=== PATIENT | female | born 1965 | race Caucasian/White ===

== ENCOUNTER 2021-08-15 14:33 | Outpatient (REF) | payer OTHER, SELFPAY ==
[2021-08-15 17:34] LABS: Alanine Aminotransferase 71 U/L (0-31); Albumin Level 4.3 g/dL (3.5-5.0); Alkaline Phosphatase 92 U/L (39-117); Anion Gap 10 (12-20); Aspartate Amino Transferase 42 U/L (5-31); Bilirubin Total < 0.2 mg/dL (0.0-1.0); Blood Urea Nitrogen 12 mg/dL (9-16); C Reactive Protein 0.15 mg/dL (< or = 0.50); Calcium 9.7 mg/dL (8.4-10.2); Carbon Dioxide 29 mmol/L (22-29); Chloride 106 mmol/L (96-108); Estimated Glomerular Filt Rate 41; Glucose Random 86 mg/dL (60-115); Sodium 141 mmol/L (135-145); Total Protein 6.6 g/dL (6.5-8.0)
[2021-08-15 17:48] LABS: Thyroid Stimulating Hormone 1.52 uIU/mL (0.32-4.0)
[2021-08-15 18:04] LABS: Erythrocyte Sedimentation Rate 5 MM/HR (0-20)
[2021-08-15 18:11] LABS: Estimated Average Glucose 108 mg/dL; Hemoglobin A1c % 5.4 %
== END 2021-08-15 14:34 | disposition home or self-care (01) ==
LOC: HO.MANLDS 14:33
PROVIDERS: PCP Physician Assistant; Visit Provider Physician Assistant
DX: R73.01 Impaired fasting glucose (principal); H53.2 Diplopia
CPT/HCPCS: 36415; 80053; 83036; 84443; 85652; 86140

== ENCOUNTER 2021-09-04 09:43 | Outpatient (REF) | payer OTHER, SELFPAY ==
[2021-09-04 11:52] LABS: Alanine Aminotransferase 22 U/L (0-31); Albumin Level 4.3 g/dL (3.5-5.0); Alkaline Phosphatase 73 U/L (39-117); Anion Gap 10 (12-20); Aspartate Amino Transferase 16 U/L (5-31); Bilirubin Total 0.6 mg/dL (0.0-1.0); Blood Urea Nitrogen 15 mg/dL (9-16); Carbon Dioxide 30 mmol/L (22-29); Chloride 106 mmol/L (96-108); Estimated Glomerular Filt Rate > 60; Glucose Random 97 mg/dL (60-115); Potassium 3.7 mmol/L (3.3-5.1); Sodium 142 mmol/L (135-145); Total Protein 6.8 g/dL (6.5-8.0)
== END 2021-09-04 09:44 | disposition home or self-care (01) ==
LOC: HO.MANLDS 09:43
PROVIDERS: PCP Physician Assistant; Visit Provider Physician Assistant
DX: R94.5 Abnormal results of liver function studies (principal)
CPT/HCPCS: 36415; 80053

== ENCOUNTER 2022-06-19 09:07 | Outpatient (REF) | payer OTHER, SELFPAY ==
[2022-06-19 11:18] LABS: MANUAL DIFF FLAG NO
[2022-06-19 11:20] LABS: Basophils Percent Auto 0.8 % (0-2); Eosinophils Absolute Auto 0.2 X10*3/uL (0.0-0.4); Eosinophils Percent Auto 3.6 % (0-4); Hematocrit 43.2 % (37.0-47.0); Hemoglobin 13.9 g/dl (12.0-16.0); Imm Gran Abs Auto 0.02 X10*3/uL (0.00-0.03); Imm Gran Pct Auto 0.4 % (0.0-0.4); Lymphocytes Absolute Auto 1.5 X10*3/uL (1.2-4.9); Lymphocytes Percent Auto 29.2 % (20-40); Mean Corpuscular HGB Conc 32.2 g/dl (31.0-35.0); Mean Corpuscular Hemoglobin 30.2 pg (27.0-33.0); Mean Corpuscular Volume 93.7 fL (80.0-98.0); Mean Platelet Volume 10.1 fL (9.4-12.3); Monocytes Absolute Auto 0.5 X10*3/uL (0.1-1.2); Monocytes Percent Auto 8.8 % (2-11); Neutrophils Percent Auto 57.2 % (45-73); Platelet Count 242 X10*3/uL (160-400); Red Blood Count 4.61 X10*6/uL (4.20-5.50); Red Cell Distribution Width 13.8 % (11.0-16.0); White Blood Count 5.2 X10*3/uL (4.8-10.8)
[2022-06-19 11:26] LABS: Estimated Average Glucose 108 mg/dL; Hemoglobin A1c % 5.4 %
[2022-06-19 11:55] LABS: Alanine Aminotransferase 27 U/L (0-31); Albumin Level 4.2 g/dL (3.5-5.0); Alkaline Phosphatase 77 U/L (39-117); Anion Gap 11 (12-20); Aspartate Amino Transferase 20 U/L (5-31); Bilirubin Total 0.6 mg/dL (0.0-1.0); Blood Urea Nitrogen 13 mg/dL (9-16); Calcium 9.4 mg/dL (8.4-10.2); Carbon Dioxide 29 mmol/L (22-29); Chloride 106 mmol/L (96-108); Cholesterol 262 mg/dL; Estimated Glomerular Filt Rate > 60; Free T4 (Free Thyroxine) 0.74 ng/dL (0.71-1.85); Glucose Random 91 mg/dL (60-115); HDL Cholesterol 64 mg/dL; LDL Cholesterol Calculated 167 mg/dl; Potassium 4.5 mmol/L (3.3-5.1); Sodium 141 mmol/L (135-145); Thyroid Stimulating Hormone 9.18 uIU/mL (0.32-4.0); Total Protein 6.3 g/dL (6.5-8.0); Triglycerides 155 mg/dL
== END 2022-06-19 09:08 | disposition home or self-care (01) ==
LOC: HO.MANLDS 09:07
PROVIDERS: Visit Provider Physician Assistant
DX: Z00.00 Encounter for general adult medical examination without abnormal findings (principal); R73.01 Impaired fasting glucose
CPT/HCPCS: 36415; 80053; 80061; 83036; 84439; 84443; 85025

== ENCOUNTER 2022-10-01 09:33 | Outpatient (REF) | payer OTHER, SELFPAY ==
[2022-10-01 12:26] LABS: Free T4 (Free Thyroxine) 1.07 ng/dL (0.71-1.85); Thyroid Stimulating Hormone 0.99 uIU/mL (0.32-4.0)
== END 2022-10-01 09:34 | disposition home or self-care (01) ==
LOC: HO.MANLDS 09:33
PROVIDERS: Visit Provider Physician Assistant
DX: E03.9 Hypothyroidism, unspecified (principal)
CPT/HCPCS: 36415; 84439; 84443

== ENCOUNTER → 2023-01-16 14:51 | Outpatient (REF) | payer OTHER, SELFPAY ==
--- NOTE | 2023-01-16 14:54 | CA_ITS ---
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 The calculated ejection fraction is 69% by biplane method. - There is moderate septal asymmetric hypertrophy. - There is mild aortic valve regurgitation. - There is mild dilatation of the ascending aorta measuring 3.90 cm. Findings Left Ventricle Normal left ventricular cavity size. The left ventricular systolic function is normal. The calculated ejection fraction is 69% by biplane method. There is no evidence of regional wall motion abnormalities. Diastolic function is normal for age. There is moderate septal asymmetric hypertrophy. LV peak GLS -20.2%. Right Ventricle Normal right ventricular cavity size and systolic function. Atria Both atria are normal in size. Aortic Valve The aortic valve was not well visualized. There is no aortic valve stenosis. There is mild aortic valve regurgitation. Mitral Valve The mitral valve appears normal. There is no mitral valve regurgitation. There is no mitral valve stenosis. Pulmonic Valve The pulmonic valve is likely normal. Tricuspid Valve There is trace tricuspid valve regurgitation. There is no evidence of pulmonary hypertension. Great Vessels There is mild dilatation of the ascending aorta measuring 3.90 cm. Venous The inferior vena cava is normal in size and collapses greater than 50% with inspiration. Pericardium/Pleural There is no evidence of pericardial effusion. Prior Study Comparison No prior study available for comparison. Measurements 2D Linear Measurements IVSd: 1.53 0.6-0.9/0.6-1.0 cm LVIDd: 3.30 3.9-5.3/4.2-5.9 cm LVIDd Index: 1.78 2.4-3.2/2.2-3.1 cm/m2 LVIDs: 2.23 2.0-3.6 cm LVPWd: 0.75 0.7-1.1 cm LA Diam: 3.30 2.7-3.8/3.0-4.0 cm LAIDs Index: 1.78 1.5-2.3 cm/m2 LV Mass: 143.71 67-162/88-224 g LV Mass Index: 77.68 43-95/49-115 g/m2 LVOT Diam: 2.00 3.0+(-)1.3 cm 2D Systolic Function EF 4C: 70.30 >55% EF 2C: 65.60 >55% EF BiP: 68.50 >55% Mitral Valve MV Pk E: 0.63 MV PK A: 0.81 MV Decel Time: 218.00 E/A: 0.80 E'Lateral: 11.60 E'Medial: 6.20 E/E' Med: 10.20 E/E' Lat: 5.40 PHT: 64.00 MVA PHT: 3.44 Decel [place]: 2.89 Aortic Valve AoV Pk Jeff: 1.72 AoV Mn Jeff: 1.07 AoV VTI: 0.34 AoV Pk Grad: 12.00 Aov Mn Grad: 6.00 KELI Cont.VTI: 2.19 AI Pk Jeff: 3.90 AI [place]: 1.08 LVOT LVOT Pk Jeff: 1.20 LVOT Mn Jeff: 0.80 LVOT VTI: 0.24 LVOT Pk Grad: 6.00 LVOT Mn Grad: 3.00 LVOT Diam: 2.00 LVOT Area: 3.14 Diastolic Function MV Pk E: 0.63 MV Pk A: 0.81 E/A: 0.80 E'Medial: 6.20 E/E' Med: 10.20 E' Laterial: 11.60 E/E' Lat: 5.40 Right Ventricle TAPSE (mm): 22.00 TVS' Jeff: 10.70 Tricuspid Valve TR Pk Jeff: 1.15 TR Pk Grad: 5.00 RA Press: 3.00 RVSP: 8.00 Great Vessels Aorta Sinus of Valsalva: 3.50 2.0-3.5 cm Ao Asc: 3.90 2.1-3.4 cm Ao Arch: 3.80 Pulmonary Valve PV Pk Jeff: 0.96 Peak PV Grad: 4.00 Updated in Other Vendor System with Status of Final Yeyo Lakhani MD electronically signed on 01/16/2023 4:42:18 PM with status of Final
== END ==
LOC: HO.CARD 14:51
PROVIDERS: PCP Internal Medicine; Visit Provider Physician Assistant
DX: R55 Syncope and collapse (principal)
CPT/HCPCS: 93306; 93356

== ENCOUNTER → 2023-01-16 14:54 | Outpatient (BNV) | payer OTHER, SELFPAY | PROVIDERS: PCP Internal Medicine; Visit Provider Internal Medicine | DX: I35.1 Nonrheumatic aortic (valve) insufficiency (principal) | CPT/HCPCS: 93306 ==

== ENCOUNTER 2023-05-05 10:23 | Outpatient (REF) | payer OTHER, SELFPAY ==
[2023-05-05 14:02] LABS: Free T4 (Free Thyroxine) 1.18 ng/dL (0.71-1.85); Thyroid Stimulating Hormone 0.02 uIU/mL (0.32-4.0)
[2023-05-07 03:28] LABS: Thyroid Peroxidase Antibodies 3 IU/mL (<9)
[2023-05-08 17:23] LABS: Thyroid Stimulating Immunoglob <89 % baseline (<140)
== END 2023-05-05 10:24 | disposition home or self-care (01) ==
LOC: HO.MANLDS 10:23
PROVIDERS: Visit Provider Physician Assistant
DX: E03.8 Other specified hypothyroidism (principal)
CPT/HCPCS: 36415; 84439; 84443; 84445; 84481; 86376

== ENCOUNTER 2023-06-02 08:45 | Outpatient (REF) | payer OTHER, SELFPAY ==
[2023-06-02 14:25] LABS: Free T4 (Free Thyroxine) 1.01 ng/dL (0.71-1.85); Thyroid Stimulating Hormone 0.03 uIU/mL (0.32-4.0)
[2023-06-03 10:23] LABS: Triiodothyronine T3 Free 3.7 pg/mL (2.3-4.2)
[2023-06-03 12:23] LABS: Thyroid Peroxidase Antibodies 3 IU/mL (<9)
== END 2023-06-02 08:46 | disposition home or self-care (01) ==
LOC: HO.MANLDS 08:45
PROVIDERS: Visit Provider Physician Assistant
DX: E03.8 Other specified hypothyroidism (principal)
CPT/HCPCS: 36415; 84439; 84443; 84481; 86376

== ENCOUNTER 2023-07-01 10:57 | Outpatient (REF) | payer OTHER, SELFPAY ==
[2023-07-01 14:03] LABS: Free T4 (Free Thyroxine) 0.94 ng/dL (0.71-1.85); Thyroid Stimulating Hormone 0.04 uIU/mL (0.32-4.0)
[2023-07-02 07:08] LABS: Triiodothyronine T3 Free 5.4 pg/mL (2.3-4.2)
[2023-07-02 09:38] LABS: Thyroid Peroxidase Antibodies 3 IU/mL (<9)
== END 2023-07-01 10:58 | disposition home or self-care (01) ==
LOC: HO.MANLDS 10:57
PROVIDERS: Visit Provider Physician Assistant
DX: E03.8 Other specified hypothyroidism (principal)
CPT/HCPCS: 36415; 84439; 84443; 84481; 86376

== ENCOUNTER 2023-10-31 08:36 | Outpatient (REF) | payer OTHER, SELFPAY ==
[2023-10-31 13:24] LABS: MANUAL DIFF FLAG NO
[2023-10-31 13:43] LABS: Basophils Percent Auto 0.7 % (0-2); Eosinophils Absolute Auto 0.1 X10*3/uL (0.0-0.4); Eosinophils Percent Auto 2.8 % (0-4); Hematocrit 39.7 % (37.0-47.0); Imm Gran Abs Auto 0.02 X10*3/uL (0.00-0.03); Imm Gran Pct Auto 0.4 % (0.0-0.4); Lymphocytes Absolute Auto 1.5 X10*3/uL (1.2-4.9); Lymphocytes Percent Auto 32.2 % (20-40); Mean Corpuscular HGB Conc 32.7 g/dl (31.0-35.0); Mean Corpuscular Hemoglobin 30.5 pg (27.0-33.0); Mean Corpuscular Volume 93.2 fL (80.0-98.0); Mean Platelet Volume 10.6 fL (9.4-12.3); Monocytes Absolute Auto 0.4 X10*3/uL (0.1-1.2); Monocytes Percent Auto 8.5 % (2-11); Neutrophils Absolute Auto 2.6 x10*3/uL (2.0-8.3); Neutrophils Percent Auto 55.4 % (45-73); Platelet Count 241 X10*3/uL (160-400); Red Blood Count 4.26 X10*6/uL (4.20-5.50); Red Cell Distribution Width 15.2 % (11.0-16.0); White Blood Count 4.6 X10*3/uL (4.8-10.8)
[2023-10-31 13:58] LABS: Estimated Average Glucose 111 mg/dL; Hemoglobin A1c % 5.5 % (<6.0)
[2023-10-31 14:03] LABS: Alanine Aminotransferase 23 U/L (0-31); Albumin Level 4.1 g/dL (3.5-5.0); Alkaline Phosphatase 87 U/L (39-117); Anion Gap 12 (12-20); Aspartate Amino Transferase 18 U/L (5-31); Bilirubin Total 0.6 mg/dL (0.0-1.0); Blood Urea Nitrogen 14 mg/dL (9-16); Calcium 9.3 mg/dL (8.4-10.2); Carbon Dioxide 26 mmol/L (22-29); Chloride 105 mmol/L (96-108); Cholesterol 210 mg/dL (<200); Estimated Glomerular Filt Rate > 60; Glucose Random 83 mg/dL (60-115); HDL Cholesterol 81 mg/dL (>40); LDL Cholesterol Calculated 114 mg/dL (<100); Potassium 4.3 mmol/L (3.3-5.1); Sodium 139 mmol/L (135-145); Total Protein 6.4 g/dL (6.5-8.0); Triglycerides 79 mg/dL (<150)
[2023-10-31 14:21] LABS: Free T4 (Free Thyroxine) 0.71 ng/dL (0.71-1.85); Thyroid Stimulating Hormone 7.77 uIU/mL (0.32-4.0); Vitamin D 25-OH Total 72.4 ng/mL (>30)
== END 2023-10-31 08:37 | disposition home or self-care (01) ==
LOC: HO.MANLDS 08:36
PROVIDERS: Visit Provider Physician Assistant
DX: Z00.00 Encounter for general adult medical examination without abnormal findings (principal); E03.8 Other specified hypothyroidism
CPT/HCPCS: 36415; 80053; 80061; 82306; 83036; 84439; 84443; 85025

== ENCOUNTER 2024-10-01 12:58 | Outpatient (REF) | payer OTHER, SELFPAY ==
[2024-10-01 13:26] LABS: Appearance Urine Clear; Color Urine Yellow; Glucose Urine UA Negative (Negative); Leukocyte Esterase Urine Large (3+) (Negative); Nitrite Urine Negative (Negative); PH 7.5 (5.0-9.0); Specific Gravity - Urine <= 1.005 (1.005-1.025); UMIC TRIGGER UACC YES; Urine Blood Moderate (2+) (Negative); Urine Ketones Negative (Negative); Urine Protein Negative (Neg-Trace)
[2024-10-01 13:40] LABS: Bacteria Urine Trace (None Seen); Hyaline Casts Urine 0-2 /LPF (0-2); RBC Urine 0-2 /HPF (0-2); Squamous Epithelial Cell Urine 0-2 /HPF (0-2); UACC Culture Trigger YES
--- OUTSIDE RECORDS SUMMARY | 2024-10-01 14:49 | XMS_ITS ---
Author Organization [employer] [facility] Address [address] [place] [address] Care Team Providers Care Shoe Laster Name Role Phone STERLING SUE Primary Care Provider MEL Walsh Unavailable [phone] Allergies No Known Allergies Results Component Value Reference Range Notes [id number] Reviewed date:09/27/2024 04:47:36 PM Interpretation: Performing Lab:[facility] [place], [address], [place], Phone - [phone], Director - [place] Notes/Report: RPR Non Reactive Non Reactive HBsAg Screen-[id number] Reviewed date:09/27/2024 04:47:29 PM Interpretation: Performing Lab:[facility] [place], [address], [address], [place], Phone - [phone], Director - [place] Notes/Report: HBsAg Screen Negative Negative HIV Ab/p24 Ag with Reflex-[id number] Reviewed date:09/27/2024 04:47:23 PM Interpretation: Performing Lab:[facility] [place], [address], [address], [place], Phone - [phone], Director - [place] Notes/Report: HIV Ab/p24 Ag Screen Non Reactive Non Reactive HIV-1/HIV-2 antibodies and HIV-1 p24 antigen were NOT detected. There is no laboratory evidence of HIV infection. HIV Negative HCV Antibody-[id number] Reviewed date:09/27/2024 04:47:16 PM Interpretation: Performing Lab:[facility] [place], [address], [address], [place], Phone - [phone], Director - [place] Notes/Report: Hep C Virus Ab Non Reactive Non Reactive HCV antibody alone does not differentiate between previously resolved infection and active infection. Equivocal and Reactive HCV antibody results should be followed up with an HCV RNA test to support the diagnosis of active HCV infection. PDF Report Reviewed date:09/27/2024 04:48:51 PM Interpretation: Performing Lab:[facility] [place], [address], [address], [place], Phone - [phone], [facility] Notes/Report: Clinical Information:SRC: CERVIX Chlamydia/GC Amplification Reviewed date:09/28/2024 11:42:00 AM Interpretation: Performing Lab:[facility] [place], [address], [address], [place], Phone - [phone], [facility] Notes/Report: Clinical Information:SRC: CERVIX Chlamydia trachomatis, TUAN Negative Negative Neisseria gonorrhoeae, TUAN Negative Negative REASON FOR VISIT STI TESTING Medications Medication SIG (Take, Route, Frequency, Duration) Notes Start Date End Date Status Liothyronine Sodium 5 MCG take 1 tablet by mouth once daily Oral for 90 Active Lisinopril 2.5 MG take 1 tablet by mouth once daily Oral for 90 days Taking 0.5 tab daily Active Levothyroxine Sodium 88 MCG take 1/2 tablet by mouth once daily Orally Once a day Active Clobetasol Propionate 0.05 % 1 application to affected area Externally Twice a day for 56 days 05/24/2024 Active Estradiol 7.5 MCG/24HR 1 ring Vaginal every 3 months for 90 days 05/24/2024 Not-Taking Social History Tobacco Use: Social History Observation Description Date Details (start date - stop date) Never Smoker NA - NA Sexual History Question Answer Notes Had sex in the past 12 months (vaginal, oral, or anal)? Yes with Men only Prevention strategies discussed: Other AUDIT-C (Standard) Question Answer Notes Did you have a drink contain ing alcohol in the past year? Yes How often did you have six o r more drinks on one occasion in the past year? Never (0 point) How many drinks did you have on a typical day when you were drinking in the past year? 1 or 2 drinks (0 point) How often did you have a dri nk containing alcohol in the past year? 2 to 3 times a week (3 points) Points 3 Interpretation Positive Tobacco Control (Standard) Question Answer Notes Tobacco use: Nonsmoker Vital Signs Temperature 97.5 degrees Fahrenheit 09/25/19 25 Blood pressure systolic 124 mm Hg 09/25/19 25 Blood pressure diastolic 88 mm Hg 025 Height 65.25 in 09/24/2024 Weight 185 lbs 09/24/2024 BMI 30.55 kg/m2 09/24/2024 Encounters Encounter Location Date Provider Diagnosis [facility] [address] [place] [address] 09/24/2024 MEL GAUTHIER High risk heterosexu al behavior Z72.51 Assessments Encounter Date Diagnosis (ICD Code) Assessment Notes Treatment Notes Treatment Clinical Notes Section Notes 09/24/2024 High risk heterosexual behavior (ICD-10 - Z72.51) Plan Of Treatment Pending Test Test Name Order Date Chlamydia/GC Amplification-[id number] 2024 Next Appt Details Follow Up: prn, Reason: Provider Name:MEL Fall, 05/13/2025 09:00:00 AM[address], [place], [address], Procedure Notes * Category Sub-Category Detail Notes Wet [place] Clue cells None seen Hyphae No hyphae or buds Trichomonas None seen Progress Notes * JOHN TONGOB:1965 (59 yo F)Acc No.[id number]:09/24/2024 PROGRESS NOTES Patient:?NICHELLE TONG Provider:?MEL GAUTHIER MD :1965???Age:59 Y???Sex:Female D ate:09/24/2024 Address:[address] [place] [address], [facility] Pcp:SUE KATZ Subjective: * Chief Complaints: * ???STI TESTING * HPI: ???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 No known or perceived risk factors ?Past history of sexually transmitted diseases (STDs):?no sexually transmitted disease (STD) ?Risk factors:?just out of a relationship ?Associated signs and symptoms:?no fever/chills/nausea/vomiting/abdominal or pelvic pain/vaginal or vulvar lesion or discharge ? Nichelle reports she recently ended a relationship, last intercourse was mid-June. She is not symptomatic, and has no known contact with an STI, but would like to know that she is clear of any infections. Discussed the 6 mo HIV window. * ROS:?General/Constitutional:?Denies?Chills.?Denies?Fever.?Gastrointestinal:?Denies?Abdominal pain.?Denies?Change in bowel habits.?Denies?Nausea.?Denies?Vomiting.?Hematology:?Denies?Swollen glands.?Women Only:?Patient denies?postcoital bleeding.?Comments?Reports no new sexual partners.?Denies?Painful intercourse.?Denies?Vaginal discharge/itching.?Genitourinary:?Denies?Painful urination.? * Medical History:? * Director Chemistry History:?/ Para?1/.?Sexual activity?currently sexually active.?Last Pap Smear:?04/22/22 NIL, NEG HPV, 10/15/18 - ASCUS, neg.?Mammogram:?sched October 22, 01/01/23 < 50% density, 11/02/21 < 50% density, 09/04/20 < 50% density, 07/19/19, < 50% density.?LMP and menses?Kusum 2016.? Control:?bilateral tubal ligation.?Colonoscopy?2022 or 2023, yes 2019 No polyps found, f/u in 3-5 yrs due to family history of polyps..?Gardasil:?NO.?*Hep B Vac?PT's not sure.? * OB History:?Total pregnancies?1.?Total living children?1.?NVD?1.? # 1:?normal spontaneous vaginal delivery (), 09/17/94 daughter Annette , no complications.? * Surgical History:?Tonsillect rodriguez 1971Bilateral Tubal Ligation 1997Cholecysectomy 1997Wisdom Teeth 1984Endometrial Biopsy 2013Colonoscopy (Heather) 05/2023 * Hospitalization/Major Diagno stic Procedure:?1 Vaginal Delivery See Surgical Hx Double Vision 2X * Family History:?Mother: dece ased, Pancreatic Cancer. Type 2 Diabetes, Osteoporosis.?Father: , Heart Issue, Kidney Stones.?2 brother(s) , 2 sister(s) . .? Sister - Jenifer - 1955 - got Covid Sister - Lisa - 1953 - well Brother - Mohsen - 1957 - estranged Brother - Romulo - 1966 - well. * Social History:?Tobacco Use:?Tobacco Control (Standard)?Tobacco use:?Nonsmoker ???Sexual History:?Sexual History?Had sex in the past 12 months (vaginal, oral, or anal)??Yes ?with?Men only ?Prevention strategies discussed:?Other ?Details of Sexual History?Are you sexually active??Yes ???Drugs/Alcohol:?Drugs?Have you used drugs other than those for medical reasons in the past 12 months??Yes ?Marijuana??Yes edible - used rarely for sleep ???Miscellaneous:?Children: yes, 1. ?Domestic violence: no. ?Exercise: yes, walking, biking, eliptical, jogging, weights. ?Home smoke detector use: yes, smoke detectors, carbon monoxide detector. ?Housing: owns a home. ?Living with: alone. ?Marital status: , in relationship with male partner - Edgar. ?Natural support system: yes. 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 ?Pets: none. ?Sexual abuse: no. ?Sexually active: yes. ?Verbal abuse: yes, with late . ???Drug/Alcohol:?AUDIT-C (Standard)?Did you have a drink containing alcohol in the past year??Yes ?How often did you have six or more drinks on one occasion in the past year??Never (0 point) ?How many drinks did you have on a typical day when you were drinking in the past year??1 or 2 drinks (0 point) ?How often did you have a drink containing alcohol in the past year??2 to 3 times a week (3 points) ?Points?3 ?Interpretation?Positive * Medications:?TakingLiothyron ine Sodium 5 MCG Tablet take 1 tablet by mouth once daily Oral Lisinopril 2.5 MG Tablet take 1 tablet by mouth once daily Oral , Notes to Pharmacist: Taking 0.5 tab dailyLevothyroxine Sodium 88 MCG Tablet take 1/2 tablet by mouth once daily Orally Once a day Clobetasol Propionate 0.05 % Cream 1 application to affected area Externally Twice a day Taking Liothyronine Sodium 5 MCG Tablet take 1 tablet by mouth once daily Oral Taking Lisinopril 2.5 MG Tablet take 1 tablet by mouth once daily Oral , Notes to Pharmacist: Taking 0.5 tab dailyTaking Levothyroxine Sodium 88 MCG Tablet take 1/2 tablet by mouth once daily Orally Once a day Taking Clobetasol Propionate 0.05 % Cream 1 application to affected area Externally Twice a day Not-TakingEstradiol 7.5 MCG/24HR Ring 1 ring Vaginal every 3 months Medication List reviewed and reconciled with the patientNot-Taking Estradiol 7.5 MCG/24HR Ring 1 ring Vaginal every 3 months Medication List reviewed and reconciled with the patient * Allergies:?N.K.D.A.no[Allerg ies Verified] Objective: * Vitals:?Ht: 65.25 in, Wt:185 lbs, BMI:30.55Index, BP:124/88mm Hg, Temp:97.5F. * Examination: ???General Examination: ?GENERAL APPEARANCE:? pleasant, well nourished, in no acute distress, rough patcher present in room.?LYMPH NODES:? no inguinal adenopathy.?Genitourinary - Female: ?ABDOMEN:? soft, non-tender, no mass.?EXTERNAL GENITALS:? normal.?URETHRAL MEATUS:? normal.?VAGINA:? healthy pink mucosa without any lesions.?ANUS/PERINEUM:? normal.?CERVIX:? downward, normal appearing, GC/CT swab obtained, no cervical movement tenderness.?UTERUS:? normal size, mobile, non tender.?OVARIES:? no masses felt in adnexa, nontender.? Assessment: * Assessment: 1.?High risk heterosexual be havior - Z72.51 (Primary)??? Plan: * Treatment: ? Value Reference Range ?RPR Non Reactive Non Reactive - * This lab was reviewed by EZE GAUTHIER on 09/27/2024 at 16:47 PM EDT ?LAB: HBsAg Screen-[id number]* ? Value Reference Range ?HBsAg Screen Negative Negative - * This lab was reviewed by EZE GAUTHIER on 09/27/2024 at 16:47 PM EDT ?LAB: HIV Ab/p24 Ag with Reflex-[id number]* ? Value Reference Range ?HIV Ab/p24 Ag Screen Non Reactive No n Reactive - * This lab was reviewed by EZE GAUTHIER on 09/27/2024 at 16:47 PM EDT ?LAB: Chlamydia/GC Amplification-[id number]* Cervical (Done in Office) ?LAB: HCV Antibody-[id number] * Procedures:?[place]et [place]:?Clue cells?None seen.?Hyphae?No hyphae or buds.?Trichomonas?None seen.? * Procedure Codes:? * Preventive Medicine:?~~~~~~~~ SAFER SEX ~~~~~~~~ Sexually transmitted infections (STIs) are spread by sexual contact involving the genitals, mouth, or rectum, and can also be spread from a woman to her fetus before or during delivery. STIs, which affect both men and women, are a worldwide public health concern. Although most STIs can be cured, some cannot, including HIV (which causes AIDS), genital herpes, and human papillomavirus (HPV), which can cause genital warts. STIs can be spread by people who don't know they are infected. Always use protection every time you have sex, including oral sex, until you are sure you and your partner are not infected with an STI. If you are in a relationship, delay having sex until you are physically and emotionally prepared, have agreed to only have sex with each other, and have both been tested for STIs. Abstinence as prevention ~~~~~~~~~~~~~~~~ Completely avoiding sexual contact (abstinence), including intercourse and oral sex, is the only certain way to prevent an infection. Discuss safer sex with your partner ~~~~~~~~~~~~~~~~~~~~~~~ Discuss STIs before you have sex with someone. Even though a sex partner doesn't have symptoms of an STI, he or she may still be infected. Questions to ask someone before having sex include: How many people have you had sex with? Have you had sex without a condom? Have you ever had unprotected oral sex? Have you had more than one sex partner at a time? Do you inject illegal drugs or have you had sex with someone who injects drugs? Have you ever had unprotected sex with a prostitute? Have you had a test for HIV? What were the results? Have you ever had an STI, including hepatitis B or hepatitis C? Was it treated and cured? Safer sex practices ~~~~~~~~~~~~~ Some STIs, such as HIV, can take up to 6 months before they can be detected in the blood. Genital herpes and the human papillomavirus (HPV) can be spread when symptoms are not present. Even if you and your partner have been tested, use condoms for all sex until you and your partner haven't had sex with another person for 6 months. Then get tested again. Watch for symptoms of STIs, such as unusual discharge, sores, redness, or growths in your and your partner's genital area, or pain while urinating. Don't have more than one sex partner at a time. The safest sex is with one partner who has sex only with you. Every time you add a new sex partner, you are being exposed to all of the diseases that all of their partners may have. Your risk for an STI increases if you have several sex partners at the same time. Use a condom every time you have sex. A condom is the best way to protect yourself from STIs. Latex and polyurethane condoms do not let STI viruses pass through, so they offer good protection from STIs. Condoms made from sheep intestines do not protect against STIs. Use a water-based lubricant such as K-Y Jelly or Astroglide to help prevent tearing of the skin if there is a lack of lubrication during sexual intercourse. Small tears in the vagina during vaginal sex or in the rectum during anal sex allow STI bacteria or viruses to get into your blood. Avoid douching if you are a woman, because it can change the normal balance of organisms in the vagina and increases the risk of getting an STI. A mouth barrier, such as a dental dam, can be used to reduce the spread of infection through oral sexual activity. You can discuss this method with your dentist or doctor. Tell your sex partner or partners if you have symptoms of an infection or if you're being treated for an STI, such as HIV or herpes. If you or your partner has herpes, avoid sexual contact when a blister is present. If you and your partner have sex, use a latex condom. * Follow Up:?prn * Images: Billing Information: * Visit Code:? 45437 Office Visit, Est Pt., Level 3. * Procedure Codes:? 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 No known or perceived risk factors Nichelle reports she recently ended a relationship, last intercourse was mid-June. She is not symptomatic, and has no known contact with an STI, but would like to know that she is clear of any infections. Discussed the 6 mo HIV window. Past history of sexually tra nsmitted diseases (STDs):: no sexually transmitted disease (STD) Risk factors:: just out of a relati onship Associated signs and symptom s:: no fever/chills/nausea/vomiting/abdominal or pelvic pain/vaginal or vulvar lesion or discharge Examination Category Sub-Category Detail Notes Category Not es Genitourinary - Female ABDOMEN: soft, non-tender, no mass EXTERNAL GENITALS: normal VAGINA: healthy pink mucosa without any lesions CERVIX: downward, normal carolynn earing, GC/CT swab obtained, no cervical movement tenderness UTERUS: normal size, mobile, non tender OVARIES: no masses felt in ad nexa, nontender URETHRAL MEATUS: normal ANUS/PERINEUM: normal General Examination GENERAL APPEARANCE: pleasant , well nourished, in no acute distress, rough patcher present in room LYMPH NODES: no inguinal adenopat hy
--- OUTSIDE RECORDS SUMMARY | 2024-10-01 14:49 | XMS_ITS ---
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 Role Phone STERLING SUE Primary Care Provider MEL Walsh Unavailable [phone] Allergies No Known Allergies REASON FOR VISIT 2 MONTH FOLLOW UP Medications Medication SIG (Take, Route, Frequency, Duration) Notes Start Date End Date Status Clobetasol Propionate 0.05 % 1 application to affected area Externally Twice a day for 56 days 05/24/2024 Active Estradiol 7.5 MCG/24HR 1 ring Vaginal every 3 months for 90 days 05/24/2024 Not-Taking Levothyroxine Sodium 88 MCG take 1/2 tablet by mouth once daily Orally Once a day Active Lisinopril 2.5 MG take 1 tablet by mouth once daily Oral for 90 days Taking 0.5 tab daily Active Liothyronine Sodium 5 MCG take 1 tablet by mouth once daily Oral for 90 Active Social History Tobacco Use: Social History Observation Description Date Details (start date - stop date) Never Smoker NA - NA Tobacco Use/Smoking Question Answer Notes Are you a nonsmoker Sexual History Question Answer Notes Had sex [...] week (3 points) Points 3 Interpretation Positive Vital Signs Temperature 97.8 degrees Fahrenheit 07/22/19 25 Blood pressure systolic 118 mm Hg 07/22/19 25 Blood pressure diastolic 76 mm Hg 025 Height 65.25 in 07/22/2024 Weight 185 lbs 07/22/2024 BMI 30.55 kg/m2 07/22/2024 Encounters Encounter Location Date Provider Diagnosis [address] [place] [address] 07/22/2024 MEL GAUTHIER Lichen sclerosus et atrophicus L90.0 Assessments Encounter Date Diagnosis (ICD Code) Assessment Notes Treatment Notes Treatment Clinical Notes Section Notes 07/22/2024 Lichen sclerosus et atrophicus (ICD-10 - L90.0) Taper clobetasol to twice weekly over the next month. Will call if needs refill - is nearly done with the first tube of cream. Reviewed how little to use. Plan Of Treatment Treatment Notes Assessment Notes Lichen sclerosus et atrophicus Taper sascha betasol to twice weekly over the next month. Will call if needs refill - is nearly done with the first tube of cream. Reviewed how little to use. Next Appt Details Follow Up: prn, Reason: Provider Name:MEL Fall, 05/13/2025 09:00:00 AM, [address] [place] [address], [address], [place], [address], Progress Notes * CHRIS TONGEDOB:1965 (59 yo F)Acc No.[id number]:07/22/2024 PROGRESS NOTES Patient:?OPAL TONG Provider:?MEL GAUTHIER MD :1965???Age:59 Y???Sex:Female D ate:07/22/2024 Address:[address] [place] [address], [id number] Pcp:SUE KATZ Subjective: * Chief Complaints: * ???2 MONTH FOLLOW UP * HPI: ???Constitutional:? Patient is here today for a follow up visit. She underwent a vulvar? biopsy on 05/09/24 for a diagnosis of lichen sclerosis. She was started on twice daily clobetasol. She reports: it has been working wonderfully, but she has used up most of the tube of cream that she was prescribed. She reports she has a new sexual partner - she finds that going slow has helped to stretch her and she doesn't need vaginal estrogen at this time. * ROS:?General/Constitutional:?Denies?Chills.?Denies?Fever.?Gastrointestinal:?Denies?Abdominal pain.?Denies?Nausea.?Denies?Vomiting.?Women Only:?Patient denies?abnormal bleeding, vaginal discharge/itching.? * Medical History:? * Vinegar Maker History:?/ Para?06/30.?Sexual activity?currently sexually active.?Last Pap Smear:?04/22/22 NIL, NEG HPV, 10/15/18 - ASCUS, neg.?Mammogram:?sched October 22, 01/01/23 < 50% density, 11/02/21 < 50% density, 09/04/20 < 50% density, 07/19/19, < 50% density.?LMP and menses?[place] 2016.? Control:?bilateral tubal ligation.?Colonoscopy?2022 or 2023, yes 2019 No polyps found, f/u in 3-5 yrs due to family history of polyps..?Gardasil:?NO.?*Hep B Vac?PT's not sure.? * OB History:?Total pregnancies?1.?Total living children?1.?NVD?1.? # 1:?normal spontaneous vaginal delivery (), 09/17/94 daughter Lochlyn , no complications.? * Surgical History:?Tonsillect rodriguez 1971Bilateral Tubal Ligation 1997Cholecysectomy 1997[place] [facility] 1984Endometrial Biopsy 2013Colonoscopy ([place]) 05/2023 * Hospitalization/Major Diagno stic Procedure:?1 Vaginal Delivery See Surgical Hx DOUBLE VISION 2X * Family History:?Mother: dece ased, Pancreatic Cancer. Type 2 Diabetes, Osteoporosis.?Father: , Heart Issue, Kidney Stones.?2 brother(s) , 2 sister(s) . .? Sister - Jenifer - 1955 - got Covid Sister - Lisa - 1953 - well Brother - Mohsen - 1957 - estranged Brother - Romulo - 1966 - well. * Social History:?Tobacco Use:?Tobacco Use/Smoking?Are you a?nonsmoker ???Sexual History:?Sexual History?Had sex in the past [...] yes. 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 * Examination: ???Genitourinary - Female: ?GENERAL APPEARANCE:? alert, oriented, no apparent distress.?EXTERNAL GENITALS:?pale coloration of the medial labia majora and the labia minora without extending down onto the perineum and with some mild architectural changes.?URETHRAL MEATUS:?normal.?ANUS/PERINEUM:?see above.? Assessment: * Assessment: 1.?Lichen sclerosus et atrop hicus - L90.0 (Primary)??? Plan: * Treatment: * Procedure Codes:? * Preventive Medicine:?~~~~~~~~~~~~~ CLOBETASOL TAPER ~~~~~~~~~~~~~ Please taper clobetasol to twice weekly as follows: Once daily for 2 weeks, then every other day for 2 weeks, then twice weekly from then on. * Follow Up:?prn * Images: Billing Information: * Visit Code:? 17043 Office Visit, Est Pt., Level 3. * Procedure Codes:? * Sign off status: Completed true * Provider:?MEL GAUTHIER MD Date:?2024 Generated for Michael dudley/Marzena/eTransmitting on:?10/01/2024 02:49 PM EDT History and Physical Notes * HPI (History of Present Illness) Category Sub-Category Detail Notes Category Not es Constitutional Patient is here today for a follow up visit. She underwent a vulvar biopsy on 05/09/24 for a diagnosis of lichen sclerosis. She was started on twice daily clobetasol. She reports: it has been working wonderfully, but she has used up most of the tube of cream that she was prescribed. She reports she has a new sexual partner - she finds that going slow has helped to stretch her and she doesn't need vaginal estrogen at this time. Examination Category Sub-Category Detail Notes Category Not es Genitourinary - Female EXTERNAL GENITALS: pale c oloration of the medial labia majora and the labia minora without extending down onto the perineum and with some mild architectural changes GENERAL APPEARANCE: alert, oriented, no apparent distress URETHRAL MEATUS: normal ANUS/PERINEUM: see above
--- OUTSIDE RECORDS SUMMARY | 2024-10-01 14:49 | XMS_ITS | Patient Health Record ---
Author Organization [employer] 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 Name Role Phone STERLING SUE Primary Care Provider MEL Walsh Unavailable [phone] Allergies No Known Allergies Results Component Value Reference Range Notes [id number] Reviewed date:09/27/2024 04:47:36 PM Interpretation: Performing Lab:[facility], [address], [address], [employer], Phone - [phone], Director - [place] Notes/Report: RPR Non Reactive Non Reactive HBsAg [id number] Reviewed date:09/27/2024 04:47:29 PM Interpretation: Performing Lab:[facility] [place], [address], [employer], Phone - [phone], Director - [place] Notes/Report: HBsAg Screen Negative Negative HIV Ab/p24 Ag with Reflex-[id number] Reviewed date:09/27/2024 04:47:23 PM Interpretation: Performing Lab:[facility] [place], [address], [address], [employer], Phone - [phone], Director - [place] Notes/Report: HIV Ab/p24 Ag Screen Non Reactive Non Reactive HIV-1/HIV-2 antibodies and HIV-1 p24 antigen were NOT detected. There is no laboratory evidence of HIV infection. HIV Negative HCV [id number] Reviewed date:09/27/2024 04:47:16 PM Interpretation: Performing Lab:[facility] [place], [address], [address], [employer], Phone - [phone], Director - [place] Notes/Report: Hep C Virus Ab Non Reactive Non Reactive HCV antibody alone does not differentiate between previously resolved infection and active infection. Equivocal and Reactive HCV antibody results should be followed up with an HCV RNA test to support the diagnosis of active HCV infection. PDF Report Reviewed date:09/27/2024 04:48:51 PM Interpretation: Performing Lab:[facility] [place], [address], [place], Phone - [phone], [facility] Notes/Report: Clinical Information:SRC: CERVIX Chlamydia/GC Amplification Reviewed date:09/28/2024 11:42:00 AM Interpretation: Performing Lab:[facility] [place], [address], [place], Phone - [phone], Director - [facility] Notes/Report: Clinical Information:SRC: CERVIX Chlamydia trachomatis, TUAN Negative Negative Neisseria gonorrhoeae, TUAN Negative Negative PDF Report Reviewed date:09/27/2024 04:47:11 PM Interpretation: Performing Lab:[facility] [place], [address], [place], Phone - [phone], Director - [facility] Notes/Report: SURGICAL PATHOLOGY Reviewed date:05/24/2024 08:54:01 AM Interpretation: Performing Lab:Testing performed or reported by [facility], a Service of [facility], [address] [place] [address] Cristopher De La Torre MD, Red[facility]# [id number] Notes/Report: Patient Name: OPAL TONG Lab Patient : 1965 (Age: 59) Collection Date: 05/14/2024 Accession Date: 05/14/2024 Sign Out Date: 05/20/2024 Tissue Source: 1:VULVAR BX Final Diagnosis: Vulva, biopsy: - Lichen sclerosis. Primary Pathologist:Rajendra Johansen M.D. electronically signed out by: Rajendra Johansen M.D. / SARA Gross Description: Labeled vulvar biopsy . Received in formalin is a soft white skin punch with a diameter of 0.3 cm and a depth of 0.3 cm. The specimen is inked, and is entirely submitted. 1-1 piece, x 3, punch orientation. (EG)* As of September 06, 2023, the specimen processing and staining is performed at [facility], [address] [place] [address] (CLIA#[id number]). Its performance characteristics determined by [facility]. Precious Webb M.D. [facility] of Surgical Pathology, Michael Cortes M.D. [facility] Phone #: [phone], On-Call Pathologist: [id number] Reason For Referral No Information Medications Medication SIG (Take, Route, Frequency, Duration) [...] (Standard) Question Answer Notes Tobacco use: Nonsmoker Problems Problem Type SNOMED Code ICD Code Onset Dates Problem Status W/U Status Risk Notes Problem Postmenopausal atrophic vaginitis (95239072) Postmenopausal atrophic vaginitis (N95.2) Active confirmed Problem Localized morphea (733376509) Lichen sclerosus et atrophicus (L90.0) Active confirmed Vital Signs Temperature 97.5 degrees Fahrenheit 09/24/2024 Blood pressure diastolic 88 mm Hg 09/24/2024 Height 65.25 in 09/24/2024 Blood pressure systolic 124 mm Hg 09/24/2024 Weight 185 lbs 09/24/2024 BMI 30.55 kg/m2 09/24/2024 Encounters Encounter Location Date Provider Diagnosis Total [address] [address] 05/04/2024 MEL GAUTHIER Encounter for gynecological examination (general) (routine) without abnormal findings Z01.419 ; Encounter for screening mammogram for malignant neoplasm of breast Z12.31 and Other specified noninflammatory disorders of vulva and perineum N90.[address] [address] 05/14/2024 MEL GAUTHIER Other specified noninflammatory disorders of vulva and perineum N90.[address] [address] 05/24/2024 MEL GAUTHIER Lichen sclerosus et atrophicus L90.0 and Postmenopausal atrophic vaginitis N95.[address] [address] 07/22/2024 MEL GAUTHIER Lichen sclerosus et atrophicus L90.[address] [address] 09/24/2024 MEL GAUTHIER High risk heterosexu al behavior Z72.[address] [address] 05/25/2024 MEL GAUTHIER Assessments Encounter Date Diagnosis (ICD Code) Assessment Notes Treatment Notes Treatment Clinical Notes Section Notes 05/04/2024 Encounter for gynecological examination (general) (routine) without abnormal findings (ICD-10 - Z01.419) During the visit, the following areas of concern were addressed: Discussed cervical cancer screening with either cytology alone every 3 years or high risk HPV co-testing every 5 years as per ASCCP guidelines. Advised continued annual pelvic exams. Patient encouraged to increase her level of exercise. SBE technique encouraged/tau ght. Patient reminded when annual mammogram is due. Patient encouraged to keep colon screening up to date. 05/04/2024 Encounter for screening mammogram for malignant neoplasm of breast (ICD-10 - Z12.31) 05/14/2024 Other specified noninflammatory disorders of vulva and perineum (ICD-10 - N90.89) 05/24/2024 Postmenopausal atrophic vaginitis (ICD-10 - N95.2) 05/24/2024 Lichen sclerosus et atrophicus (ICD-10 - L90.0) 07/22/2024 Lichen sclerosus et atrophicus (ICD-10 - L90.0) Taper clobetasol to twice weekly over the next month. Will call if needs refill - is nearly done with the first tube of cream. Reviewed how little to use. 09/24/2024 High risk heterosexual behavior (ICD-10 - Z72.51) 05/04/2024 Other specified noninflammatory disorders of vulva and perineum (ICD-10 - N90.89) Schedule vulvar biopsy to rule out lichen sclerosis Plan Of Treatment Pending Test Test Name Order Date ANTI-HEPATITIS C 10/15/2018 HEP. B SURF. AG 10/15/2018 THIN PREP,HPV,FLAVIA IF HPV+/CYT-,CT/GC(>2 9YR)(DIAG) 10/15/2018 SYPHILIS TESTING 10/15/2018 HIV AB-AG 4TH GENERATION 10/15/2018 MM Digital Screening Mammogram 3D 2020 MM Digital Screening Mammogram 3D 2021 MM Digital Screening Mammogram 3D 2022 MM Digital Screening Mammogram 3D 2023 Chlamydia/GC Amplification-[id number] 2024 Next Appt Details Provider Name:MEL Fall, 05/13/2025 09:00:00 AM, [address], [address], [place], [address], Insurance Providers Payer Name Payer Address Payer Phone Subscriber Number Group Number Insured Name Patient Relationship to Insured Coverage Start Date Coverage End Date [facility] [address] [place] [address] [id number] OPAL TONG Self - patient is the insured Medical (General) History Medical History History ICD Code Essential (primary) hypertension I10 Disorder of thyroid, unspecified E07.9 Disease of gallbladder, unspecified K82. 9 Lichen sclerosus et atrophicus L90.0 Postmenopausal atrophic vaginitis N95.2 Unspecified hemorrhoids K64.9 Surgical History Surgery Date(Month/Year) Tonsillectomy 1970 Bilateral Tubal Ligation 1996 Cholecysectomy 1997 [place] Te[facility] 1984 Endometrial Biopsy 2012 Colonoscopy ([place]) 05/2023 Hospitalization History Reason Date(Month/Year) Double Vision 2X See Surgical Hx 1 Vaginal Delivery
--- OUTSIDE RECORDS SUMMARY | 2024-10-01 14:49 | XMS_ITS | Data Portability ---
Author Organization [facility], Home Service Address [address] [place] [address] Assessment No assessment recorded. Plan of Treatment Reminders Order Date Submit Date Provider Last Modified By Organization Details Last Modified Time Details Appointments SDV 2024 11:00A YOVANA HICKEY Not available Not available Not available ANNUAL EXAM 2024 01:30P YOVANA HICKEY Not available Not available Not available Lab urinalysi s complete, reflex culture 2024 025 [facility], [address] [place] [address], [id number], 10/01/2024 11:32:27 urinalysi s, dipstick 2024 025 darius [facility], [address] [facility], [facility] [address], [place], [address], 10/01/2024 11:28:35 TSH + free T4, serum 2023 024 [facility], [address] [place] [address], [address], 10/14/2023 13:54:28 CMP, serum or plasma 2023 024 [facility], [address] [place] [address], [address], 11/03/2023 11:23:45 CBC w/ auto diff 2023 024 [facility], [address] [place] [address], [address], 10/14/2023 13:40:19 lipid panel, blood 2023 024 [facility], [address] [place] [address], [id number], 10/14/2023 13:40:19 hemoglobi n A1c, QN, blood 2023 024 [facility], [address] [place] [address], [address], 10/14/2023 13:40:18 vitamin D, 25-hydrox y, total, serum 2023 024 [facility], [address] [place] [address], [id number], 10/14/2023 13:40:18 thyroid peroxidas e (tpo) Ab, serum 2022 023 [facility], [address] [place] [address], [address], 05/07/2023 12:50:51 tsi (thyroid- stimulati ng immunoglo bulin), serum 2022 023 [facility], [address] [place] [address], [id number], 05/09/2023 11:35:48 TSH + free T4, serum 2022 023 [facility], [address] [place] [address], [address], 05/05/2023 12:30:50 T3, free, serum or plasma 2022 023 [facility], [address] [place] [address], [address], 04/29/2023 15:56:[address] referral - has had periods over the last year of double vision, vision loss, transient amnesia, syncope 2022 023 hrubner [facility], [address] [place] [address], [address], 05/02/2023 09:57:[address] referral 2022 023 hrubner [facility] [place], [address] [facility], [place], [address], 10/09/2022 08:16:37 Procedures None recorded. Surgeries None recorded. Imaging US, thyroid 2022 023 hrubner Not available 04/30/2023 09:34:19 holter monitor 2022 023 MATTEO Not available 05/09/2023 08:25:20 US, echocardi ogram 2022 023 hrubner Not available 12/03/2022 08:28:59 exercise stress test 2022 023 MATTEO Not available 12/12/2022 10:31:06 PFT, complete 2022 023 [email or web address] Not available 11/19/2022 10:40:23 XR, chest, 2 view 2022 023 [email or web address] Not available 10/22/2022 16:28:34 Medication Orders estradiol 0.01% (0.1 mg/gram) vaginal cream 2024 025 [facility]/Pharmacy #2024, [address] [place], [address], 10/01/2024 11:25:29 Bactrim DS 800 mg-160 mg tablet 2024 025 [facility]/Pharmacy #2024, [address] [place], [address], 10/01/2024 11:26:36 lisinopri l 2.5 mg tablet 2022 023 MATTEO [facility], [address] [facility], [place], [address], 10/08/2022 13:47:48 Patient TargetsNo targets recorded. Patient InstructionsNo instructions recorded. 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 Referral for Hea ring loss bilateral hearing loss (left more than right) Referring Physician: Milli Traore, Internal Medicine, Encounter Date: 10/08/2022 Neurologist Referral for Tra nsient global amnesia has had periods over the last year of double vision, vision loss, transient amnesia, syncope Referring Physician: Milli Traore, Internal Medicine, Encounter Date: 04/29/2023 Results Created Date Observation Date Name Description Value Unit Range Abnormal Flag Note LastModifiedBy Organization Detail LastModifiedTime 10/02/19 25 10/01/2024 urina lysis , dipst ick Leukocytes Modera te Not Available [facility] [address] [place], [address], 10/01/2024 11:27:08 10/02/19 25 10/01/2024 urina lysis , dipst ick Nitrite negati ve Not Available [facility] [address] [facility], [place], [address], 10/01/2024 11:27:08 10/02/19 25 10/01/2024 urina lysis , dipst ick Urobilinogen .2 Not Available [facility] [address] [facility] [address], [place], [address], 10/01/2024 11:27:08 10/02/19 25 10/01/2024 urina lysis , dipst ick Protein Negati ve Not Available [facility] [address] [facility] [address], [place], [address], 10/01/2024 11:27:08 10/02/19 25 10/01/2024 urina lysis , dipst ick pH 6.5 Not Available [address] [address] [facility] [address], [place], [address], 10/01/2024 11:27:08 10/02/19 25 10/01/2024 urina lysis , dipst ick Blood Modera te Not Available [facility] [address] [facility] [address], [place], [address], 10/01/2024 11:27:08 10/02/19 25 10/01/2024 urina lysis , dipst ick Specific [place] 1.005 Not Available [facility] [address] [facility] [address], [place], [address], 10/01/2024 11:27:08 10/02/19 25 10/01/2024 urina lysis , dipst ick Ketone Negati ve Not Available [facility] [address] [facility] [address], [place], [address], 10/01/2024 11:27:08 10/02/19 25 10/01/2024 urina lysis , dipst ick Bilirubin Negati ve Not Available [facility] [address] [facility] [address], [place], [address], 10/01/2024 11:27:08 10/02/19 25 10/01/2024 urina lysis , dipst ick Glucose Negati ve Not Available [facility] [address] [facility] [address], [place], [address], 10/01/2024 11:27:08 10/02/19 25 10/01/2024 urina lysis , dipst ick Appearance Clear Not Available [facility] [address] [facility] [address], [place], [address], 10/01/2024 11:27:08 10/02/19 25 10/01/2024 urina lysis , dipst ick Color Pale Yellow Not Available [facility] [address] [facility] [address], [place], [address], 10/01/2024 11:27:08 11/19/19 23 11/18/2022 PFT, compl ete No observ ation record ed. [email or web address] Not Available 11/19 15:29:05 11/19/19 23 11/18/2022 XR, chest , 2 view No observ ation record ed. [email or web address] [facility] [address] [facility] [address], [place], [address], 11/19/2022 15:29:05 11/19/19 23 11/18/2022 pulmo nary funct ion test proce dure (PROC ) No observ ation record ed. [email or web address] [facility] [address], [place], [address], 11/19/2022 08:12:43 12/13/19 23 12/12/2022 exerc ise stres s test No observ ation record ed. [facility] [address], [place], [address], 12/13/2022 12:25:03 01/17/20 23 01/16/2023 US, echo ardio gram No observ ation record ed. [email or web address] [facility] (Medical Records) [address] [facility], [place], [address], 01/17/2023 10:38:56 05/05/2005/05/2023 gómez r monit or No observ ation record ed. [address], [address], 05/05/2023 16:07:46 05/06/20 23 05/05/2023 US, thyro id No observ ation record ed. [address], [address], 05/06/2023 08:34:06 05/06/2005/05/2023 gómez r monit or No observ ation record ed. [address], [address], 05/06/2023 10:53:01 05/06/20 23 05/06/2023 gómez r monit or No observ ation record ed. [address], [address], 05/06/2023 13:40:37 05/06/20 23 05/06/2020 event monit or No observ ation record ed. [address], [address], 05/07/2023 08:19:02 05/07/20 23 05/05/2023 gómez r monit or No observ ation record ed. [address], [address], 05/07/2023 11:21:45 05/07/20 23 05/07/2023 event monit or No observ ation record ed. [email or web address] [address], [address], 05/07/2023 19:49:45 05/09/20 23 05/09/2023 gómez r monit or No observ ation record ed. [address], [address], 05/09/2023 09:41:16 05/10/20 23 05/10/2023 event monit or No observ ation record ed. [email or web address], [address], 05/10/2023 12:42:56 05/12/20 23 05/12/2023 gómez r monit or No observ ation record ed. [address], [address], 05/12/2023 10:57:15 05/14/20 23 05/05/2023 gómez r monit or No observ ation record ed. [address], [address], 05/14/2023 09:02:33 05/14/20 23 05/14/2023 gómez r monit or No observ ation record ed. [address], [address], 05/14/2023 10:11:45 05/15/20 23 05/05/2023 event monit or No observ ation record ed. [address], [address], 05/15/2023 19:39:37 05/15/20 23 05/15/2023 gómez r monit or No observ ation record ed. [address], [address], 05/15/2023 19:40:30 05/15/20 23 05/15/2023 event monit or No observ ation record ed. [address], [address], 05/16/2023 08:14:53 05/17/20 23 05/17/2023 event monit or No observ ation record ed. [address], [address], 05/17/2023 15:13:13 05/17/20 23 05/17/2023 event monit or No observ ation record ed. [address], [address], 05/18/2023 08:23:00 05/22/20 23 05/05/2023 event monit or No observ ation record ed. [email or web address] [employer] [address] [place] [address], [place], [address], 05/22/2023 07:38:57 05/22/20 23 05/05/2023 event monit or No observ ation record ed. [address], [address], 05/23/2023 07:46:11 05/22/20 23 05/05/2023 event monit or No observ ation record ed. [address], [address], 05/23/2023 07:46:20 05/23/20 23 05/23/2023 event monit or No observ ation record ed. [address], [address], 05/24/2023 16:00:26 05/25/20 23 05/05/2023 event monit or No observ ation record ed. [address], [address], 05/25/2023 15:57:40 05/25/20 23 05/05/2023 event monit or No observ ation record ed. [address], [address], 05/26/2023 06:57:03 05/31/20 23 05/05/2023 gómez r monit or No observ ation record ed. [address], [address], 05/31/2023 14:21:19 06/01/20 23 05/31/2023 gómez r monit or No observ ation record ed. [address], [address], 06/01/2023 15:55:45 06/01/20 23 06/01/2023 event monit or No observ ation record ed. [address], [address], 06/01/2023 15:56:00 06/03/20 23 06/03/2023 event monit or No observ ation record ed. [email or web address] [address], [address], 06/03/2023 10:32:39 06/11/20 23 05/05/2023 gómez r monit or No observ ation record ed. [email or web address] [employer] [address] [address], [place], [address], 06/13/2023 08:52:24 06/13/20 23 06/13/2023 exerc ise stres s test No observ ation record ed. [email or web address] [facility] (Scheduling Dept) [address] [place] [address], [address], 06/16/2023 08:46:09 Result Notes None recorded. Problems Name Problem SNOMED Code Status Onset Date Resolution Date Notes Provider Name and Address Organization Details Recorded Time Hypothyroi dism 40490361 Active 2018 Not Available [facility] 0 18:22:19 Increased blood pressure 56561801 Active 2018 Not Available [facility] 0 18:22:19 Hearing loss 29774843 Active 2022 YOVANA CLEANING [address] [place] [address], [address], [facility] 3 13:40:03 Central sleep apnea syndrome 78922221 Active 2022 YOVANA CLEANING [address] [place] [address], [address], [facility] 3 13:43:13 Syncopal vertigo 028178813 Active 2022 YOVANA CLEANING [address] [place] [address], [address], [facility] 3 16:17:22 Syncope and collapse 329023920 Active 2022 YOVANA CLEANING [address] [place] [address], [address], [facility] 3 16:20:03 Transient global amnesia 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 2022 YOVANA CLEANING [address] [place], [address], [facility] 3 15:44:44 Conjunctiv itis 1973309 Active 2022 YOVANA CLEANING [address] [place], [address], [facility] 3 09:51:44 Interventr icular cardiac septal hypertroph y 801311616 Active 2023 YOVANA CLEANING [address] [place] [address], [address], [facility] 4 13:41:30 Atrophic vaginitis 92738453 Active 2024 YOVANA CLEANING [address] [place] [address], [address], [facility] 5 11:24:01 Acute urinary tract infection 777559660 Active 2024 YOVANA CLEANING [address] [place] [address], [address], [facility] 5 11:25:34 Problem Notes None recorded. Procedures Surgical History None recorded. Imaging Results Imaging Date Name Status LastModified by Organization Details LastModified Time 11/18/2022 PFT, complete completed manuel Information not available 11/19/2022 15:29:05 11/18/2022 XR, chest, 2 view completed [email or web address] [facility] [address] [place] [address] [address], [place], [address], 11/19/2022 15:29:05 11/18/2022 pulmonary function test procedure (PROC) completed [email or web address] [facility] [address] [place] [address], [place], [address], 11/19/2022 08:12:43 12/12/2022 exercise stress test completed [facility] [address], [place], [address], 12/13/2022 12:25:03 01/16/2023 US, echocardiogram completed [email or web address] [place] [address] (Medical Records) [address] [place], [address], 01/17/2023 10:38:56 05/05/2023 holter monitor completed [email or web address] [address], [address], 05/05/2023 16:07:46 05/05/2023 US, thyroid completed [email or web address] [address], [address], 05/06/2023 08:34:06 05/05/2023 holter monitor completed [email or web address] [address], [address], 05/06/2023 10:53:01 05/06/2023 holter monitor completed [email or web address], [address], 05/06/2023 13:40:37 05/06/2020 event monitor completed [address], [address], 05/07/2023 08:19:02 05/05/2023 holter monitor completed [email or web address] [address], [address], 05/07/2023 11:21:45 05/07/2023 event monitor completed [address], [address], 05/07/2023 19:49:45 05/09/2023 holter monitor completed [email or web address] [address], [address], 05/09/2023 09:41:16 05/10/2023 event monitor completed [email or web address] [address], [address], 05/10/2023 12:42:56 05/12/2023 holter monitor completed [email or web address] [address], [address], 05/12/2023 10:57:15 05/05/2023 holter monitor completed [email or web address] [address], [address], 05/14/2023 09:02:33 05/14/2023 holter monitor completed [email or web address] [address], [address], 05/14/2023 10:11:45 05/05/2023 event monitor completed [email or web address] [address], [address], 05/15/2023 19:39:37 05/15/2023 holter monitor completed [email or web address] [address], [address], 05/15/2023 19:40:30 05/15/2023 event monitor completed [email or web address] [address], [address], 05/16/2023 08:14:53 05/17/2023 event monitor completed [email or web address] [address], [address], 05/17/2023 15:13:13 05/17/2023 event monitor completed [email or web address] [address], [address], 05/18/2023 08:23:00 05/05/2023 event monitor completed [email or web address] [employer] [address] [place] [address], [address], 05/22/2023 07:38:57 05/05/2023 event monitor [email or web address] [address], [address], 05/23/2023 07:46:11 05/05/2023 event monitor completed [address], [address], 05/23/2023 07:46:20 05/23/2023 event monitor completed [address], [address], 05/24/2023 16:00:26 05/05/2023 event monitor completed [address], [address], 05/25/2023 15:57:40 05/05/2023 event monitor completed [address], [address], 05/26/2023 06:57:03 05/05/2023 holter monitor completed [address], [address], 05/31/2023 14:21:19 05/31/2023 holter monitor completed [address], [address], 06/01/2023 15:55:45 06/01/2023 event monitor completed [address], [address], 06/01/2023 15:56:00 06/03/2023 event monitor completed [address], [address], 06/03/2023 10:32:39 05/05/2023 holter monitor completed [email or web address] [facility] [address] [address], [place], [address], 06/13/2023 08:52:24 06/13/2023 exercise stress test [email or web address] (Scheduling Dept) [address] [place], [address], 06/16/2023 08:46:09 Procedure Notes None recorded. Medical Equipment None Reported. Allergies No known drug allergies Medications Name Sig Start Date Stop Date Status Note LastModified by Organization Details LastModified Time atorvastati n 40 mg tablet TAKE 1 TABLET BY MOUTH EVERY DAY FOR 30 DAYS 08/17 completed Not Available Not Available Not Available clobetasol 0.05 % topical cream APPLY 1 APPLICATI ON TO AFFECTED AREA EXTERNALL Y TWO TIMES A DAY active Not Available Not Available No t Available liothyronin e 5 mcg tablet TAKE 1 TABLET DAILY active Not Available Not Available No t Available hydrocortis one acetate 25 mg rectal suppository INSERT 1 SUPPOSITO RY RECTAL THREE TIMES A DAY 30 DAY(S) 10/08 completed Not Available Not Available Not Available erythromyci n 5 mg/gram (0.5 %) eye ointment APPLY 1 CM RIBBON INTO THE LOWER CONJUNCTI JOSIE SAC(S) IN THE AFFECTED EYE(S) 3 TIMES PER DAY 12/02 completed Not Available Not Available Not Available oseltamivir 75 mg capsule TAKE 1 CAPSULE BY MOUTH TWICE A DAY FOR 5 DAYS 10/08 completed Not Available Not Available Not Available neomycin-po lymyxin-dex ameth 3.5 mg/mL-10,00 0 unit/mL-0.1 % eye drops INSTILL 1 DROP INTO AFFECTED EYE(S) EVERY 3 TO 4 HOURS 10/13 completed Not Available Not Available Not Available Synthroid 88 mcg tablet TAKE 1 TABLET DAILY active Not Available Not Available No t Available aspirin 81 mg chewable tablet Chew 1 tablet every day by oral route. active Not Available Not Available No t Available lisinopril 5 mg tablet TAKE 1 TABLET DAILY 10/08 completed Not Available Not Available Not Available estradiol 0.01% (0.1 mg/gram) vaginal cream Insert 1 g 3 times a week by vaginal route for 30 days. 2024 active Not Available Not Available Not Avai lable lisinopril 2.5 mg tablet TAKE 1 TABLET DAILY DIRECTED active Not Available Not Available No t Available doxycycline hyclate 100 mg tablet Take 1 tablet twice a day by oral route for 10 days. 09/07 completed Not Available Not Available Not Available Bactrim DS 800 mg-160 mg tablet Take 1 tablet every 12 hours by oral route for 7 days. 2024 active Not Available Not Available Not Avai lable moxifloxaci n 0.5 % eye drops INSTILL 1 DROP INTO AFFECTED EYE(S) 3 TIMES A DAY 10/13 completed Not Available Not Available Not Available Boostrix Tdap 2.5 Lf unit-8 mcg-5 Lf/0.5 mL intramuscul ar syringe 03/13 completed Not Available Not Available Not Available GaviLyte-G 236 gram-22.74 gram-6.74 gram-5.86 gram oral solution TAKE 4,000 ML BY MOUTH ONCE FOR 1 DOSE. 10/13 completed Not Available Not Available Not Available Shingrix (PF) 50 mcg/0.5 mL intramuscul ar suspension, kit 03/13 completed Not Available Not Available Not Available COVID-19 test specimen collection TEST DIRECTED 08/29 completed Not Available Not Available Not Available Flowflex COVID-19 Antigen Home Test kit 12/02 completed Not Available Not Available Not Available Xdemvy 0.25 % eye drops 10/01 completed Not Available Not Available Not Available Vitals Date Recorded Body height Body mass index (BMI) Body weight Heart rate Oxygen saturation Oxygen saturation in Arterial blood by Pulse oximetry Systolic blood pressure Diastolic blood pressure Provider Name and Address Organization Details Last Updated DateTime 3 167.64 cm 28.1 kg/m2 65565.0 7 g 81 /min 98 % 98 % 110 mm[Hg] 80 mm[Hg] [facility] 3 13:36:16 Date Recorded Body height Body mass index (BMI) Body weight Heart rate Oxygen saturation Oxygen saturation in Arterial blood by Pulse oximetry Systolic blood pressure Diastolic blood pressure Provider Name and Address Organization Details Last Updated DateTime 3 167.64 cm 28.1 kg/m2 74024.0 7 g 72 /min 98 % 98 % 120 mm[Hg] 82 mm[Hg] Kirstie Reza [facility] 3 16:02:43 Date Recorded Body height Body mass index (BMI) Body weight Heart rate Oxygen saturation Oxygen saturation in Arterial blood by Pulse oximetry Systolic blood pressure Diastolic blood pressure Provider Name and Address Organization Details Last Updated DateTime 3 167.64 cm 27.6 kg/m2 27447.3 g 95 /min 96 % 96 % 100 mm[Hg] 66 mm[Hg] Alexa Nuñezult [facility] 3 15:28:51 Date Recorded Body height Body mass index (BMI) Body weight Heart rate Oxygen saturation Oxygen saturation in Arterial blood by Pulse oximetry Systolic blood pressure Diastolic blood pressure Provider Name and Address Organization Details Last Updated DateTime 4 166.37 cm 27.4 kg/m2 91165.3 6 g 70 /min 99 % 99 % 112 mm[Hg] 68 mm[Hg] Shazia Tirso [facility] 4 13:32:31 Date Recorded Body height Body mass index (BMI) Body weight Heart rate Oxygen saturation Oxygen saturation in Arterial blood by Pulse oximetry Systolic blood pressure Diastolic blood pressure Provider Name and Address Organization Details Last Updated DateTime 5 166.37 cm 27.4 kg/m2 60415.9 3 g 70 /min 98 % 98 % 126 mm[Hg] 68 mm[Hg] Kirstie Reza [facility] 5 11:12:21 Social History Question Answer Notes LastModified by Organizat ion Details LastModified Time Tobacco Smoking Status Never Smoker Not Available [facility] 05/02/2020 03:36:23 What Was The Date Of Your Most Recent Tobacco Screening? 10/01/2024 Information not available 10/01/2024 Do You Or Have You Ever Used Any Other Forms Of Tobacco Or Nicotine? No Information not available 04/29/2023 Sex: Female Functional Status None recorded. Mental Status None recorded. Family History Nothing Reported. Medical History Condition Response Coronary Artery Disease N Gout N Other N Kidney Stones N Blood Diseases N Blood Transfusion N Breast Cancer N Lung Disease N Depression N COPD N Defects or Inherited Disease N Anxiety Disorder N Muscle, Joint, or Bone Problems N Obesity N Vision or Eye Problems N Arthritis N Infertility N Polyps N Mental Disorder N Cancer N Stroke N Varicosities N Endometriosis N Bladder or Kidney Problems N High Cholesterol N Liver Disease N Fibromyalgia N Headaches N Kidney Disease N Allergies/Hayfever N Heart Problems N Hospitalizations N Thyroid Problems N GI Problems N Eating Disorder N Skin Problems N Anemia N MRSA exposure N Constipation N Mental Illness N Diabetes N Ovarian Cancer N Seizures/Epilepsy N Tuberculosis N Congestive Heart Failure (CHF) N Eczema N Abuse/Domestic Violence N Diverticulitis N Asthma N Reflux/GERD N Hepatitis N Heart Disease N Pulmonary Embolism N Hypertension N Chicken Pox N Autism Spectrum Disorder (ASD) N Osteoporosis N Gynecological HistoryNo gynecological history recorded. Obstetrics History GPAL:G 0 P 0 0 0 0 Immunizations Vaccine Type Date Status Note Provider Nam e and Address Organization Details Recorded Time zoster, unspecified formulation 0 completed Not Available [facility] 07/22/2022 10:26:10 zoster, unspecified formulation 0 completed Not Available [facility] 07/22/2022 10:26:10 Past Encounters Encounter ID Performer Location Encounter Start Date Encounter Closed Date Diagnosis/Indication Diagnosis SNOMED-CT Code Diagnosis ICD10 Code Diagnosis Note [id number] Govind Magallon [facility] [address] [facility],[place] [address] 07/31/2018 11:38:07 07/31/2018 12:29:53 Hypothyroidism 77820193 E03.9 will need to chk tsh Increased blood pressure 39719094 R03.[address] [facility] th examination 459143177 Z00.00 Dysplastic nevus of skin 920837631 D22.9 [place]reg lesion on skin [id number] Govind Magallon DO [facility] [address] [facility],[place] [address] 09/08/2019 13:36:44 09/08/2019 14:10:28 Hypothyroidism 23224641 E03.9 will need to chk tsh Increased blood pressure 83278059 R03.0 has been excellent and not having any issues Fatigue 75282542 R53.83 will chk cbc vit d iron Rosacea, e rythematous telangiectatic type 718389 L71.8 [id number] Govind Magallon [facility] [address] [facility] [address] [address] 03/13/2020 11:11:07 03/13/2020 12:20:15 Increased blood pressure 97278225 R03.0 has been excellent and not having any issues Hypothyroidism 40131278 E03.9 will need to chk tsh Benign par oxysmal positional vertigo 422181717 H81.11 will tx conserv will hold off on meclizine [id number] Govind Magallon DO [facility] Internal Medicine [address] [facility] [address],[place] [address] 08/29/2020 11:26:14 08/29/2020 12:20:58 Active or passive immunization 826822067 Z23 awaiting covid vacc Adult heal th examination 699160561 Z00.00 is doing well no major issues will address below home bp readings are excellent and no issue Metatarsalgia 18745532 M 77.42 progressiv e for 3 months Vitamin D deficiency 347 81911 E55.9 [id number] Govind Magallon [facility] Internal Medicine [address] [facility],[place] [address] 06/18/2021 09:09:05 06/18/2021 13:37:00 Diplopia 66962035 H53.2 acute onset worrisome for a demyelinat ion presentati on?? sudden TIA? has slowly resolved but she is not back 100% we must get mri now she is also to call optho now Increased blood pressure 35850660 R03.0 has been excellent and not having any issues Hypothyroidism 55067773 E03.9 will need to chk tsh [id number] [employer] [facility] [address] [facility] [address],[place] [address] 07/18/2021 08:08:23 07/20/2021 13:15:40 Diplopia 13575397 H53.2 has had ER work up and MRI, do not have results yet Anisocoria 61113982 H57. 02 [id number] Katia Tripp [facility] [address] [facility] [address] [address] 08/15/2021 09:08:09 08/15/2021 14:23:15 Impaired fasting glycemia 234785560 R73.01 will fu with testing Diplopia 98399210 H53.[address] with corrected contrast and fu with lab work to recheck with sugar level [id number] [employer] [facility] [address] [facility],[place] [address] 10/08/2022 13:27:56 10/08/2022 16:33:02 Active or passive immunization 214048338 Z23 uptodate Adult heal th examination 138487015 Z00.00 BP excellent Hearing loss 29004760 H9 1.93 [address] Central sl eep apnea syndrome 38732568 G47.37 will set up for PFT and chest XR Increased blood pressure 44086345 R03.0 excellent on half a tab of lisinopril (will just give her the 2.5 mg) Hypothyroidism 91148238 E03.8 stable [id number] [employer] [facility] [address] [facility], [place] [address] 12/02/2022 15:53:58 12/02/2022 16:31:11 Syncopal vertigo 675491002 H81.8X1 wants to get an apple watch to record her HR, EKG, and sleep to see what's happening with her sleep and when she gets faint Syncope and collapse 309 786835 R55 agreed to testing with US and exercise stress test [id number] [employer] [facility] [address] [facility],[place] [address] 04/29/2023 15:21:11 04/29/2023 16:14:44 Transient global amnesia 386342593 G45.4 ? seizure d/owill set up with [facility] for an evaldid not have an EEG last year with the double vision Hypothyroidism 16165568 E03.8 stable [id number] [employer] [facility] [address] [facility],[place] [address] 10/14/2023 13:24:38 10/14/2023 13:56:55 Active or passive immunization 365754588 Z23 uptodate Adult heal th examination 186449235 Z00.00 BP excellent Interventr icular cardiac septal hypertrophy 917397770 I51.89 will monitor for patient Hypothyroidism 82165426 E03.8 stable [id number] [employer] Internal Medicine [address] [facility] [address],[place] [address] 10/01/2024 10:50:32 10/01/2024 12:14:35 Atrophic vaginitis 16635448 N95.2 will start on cream Acute urin sabas tract infection 495538845 N39.0 will start on bactrim Health Concerns Section Related Observation LastModified by Organization Detai ls LastModified Time None Recorded Concern Status LastModified by Organization Details LastModified Time None Recorded Advance Directives Directive None Recorded Payers Encounter Date Sequence Insurance Name Policy Number Policy Tapia Covered Member ID Tapia Member ID Guarantor Name 10/08/2022 1 [facility] [id number] 01 Nichelle J J Cernak [id number] Nichelle J Cernak 12/02/[address] [place] [address] [id number] Nichelle J J Cernak [id number] Nichelle Plunkett Cernak 04/29/[address] [place] [address] [id number] 01 Nichelle J J Cernak [id number] Nichelle Plunkett Cernak 10/14/[address] [place] [address] [id number] Nichelle J J Cernak [id number] Nichelle Plunkett Cernak 10/01/[address] [place] [address] [id number] Nichelle J J Cernak [id number] Nichelle J Cernak Notes Date Note Type Note Provider Name a mt Address Organization Details Recorded Time 3 text/html Annual WellnessReported bypatient.Diet and Nutrition:healthy diet; discussed vitamin and supplement use; discussed portion control; discussed maintaining calcium balance; discussed diet improvement Fracture Risk:no history of fractures; no recent explained fracture; no sudden unexplained fractures; no previous musculoskeletal injuries Physical Activity:exercises on a regular basis; recent increase in physical activity; good physical condition; discussed weightbearing activities; discussed exercise habits Additional Lifestyle Factors:no tobacco use; drinks alcohol (mild-moderate) Depression Risk:never feels sad, empty, or tearful; no loss of interest in activities; no significant changes in weight; no sleep disturbances or insomnia; no agitation; no loss of energy; no feelings of worthlessness or guilt; no thoughts of suicide; no history of depression; no history of mood disorders Hearing:no loss of hearing Vision:no vision problems; improved no changes since last year [employer] [address] [place], [address], [facility] 10/08/2022 14:02:39 3 text/html ER fu from [place] the patient reports that she was at a restaurant with her daughter and her DILthe patient reports that she was in [place], [place] when this occurredreports it was going straight from the airport to dinner (hadn't been drinking; hadn't eaten) also hadn't gone to the bathroom she had had a glass of wine and a half of gummy prior to eatinghas a h/x of prior syncopal episodes with negative work-upalways feels very fatigued the patient reports the PA at sleep medicine and her discussed her recurrent indicents of stopping breathingnot obstructive but central (brain related)has had extensive work up with ENT, our office the patient is reports that her PA told her to try with a cardiac work upstill haven't ruled out a seizure having episodes of fluttering, tinnitus, fatigue happened as a kid happening now [employer] [address] [place], [address], [facility] 12/02/2022 16:29:01 3 text/html c/o memory loss the patient reports that for a period of 15 minutes she doesn't remember the conversation with her brother and his GFdoesn't remember their plans for dinner or her bike ride to his house she remembers the convo in retrospect after she became cognizant of transient memory loss, visual changes, and the syncopeagreed to second opinion neuro referral and testing for possible seizure d/o also would like to check her thyroid and recheck her heart [employer] [address] [place], [address], [facility] 04/29/2023 15:58:41 4 text/html Annual WellnessReported bypatient.Diet and Nutrition:healthy diet Fracture Risk:no history of fractures; no recent explained fracture; no sudden unexplained fractures; no previous musculoskeletal injuries Physical Activity:exercises on a regular basis; recent increase in physical activity; good physical condition Additional Lifestyle Factors:no tobacco use; no alcohol intake; stopped drinking alcohol Depression Risk:never feels sad, empty, or tearful; no loss of interest in activities; no significant changes in weight; no sleep disturbances or insomnia; no agitation; no loss of energy; no feelings of worthlessness or guilt; no thoughts of suicide; no history of depression; no history of mood disorders Hearing:no loss of hearing Vision:no vision problemsNotes:last dentist appt, next [facility] the patient reports that she noted that is seeing a sleep medicine at [facility] as well for the worsening sleep numbers when she exercises [employer] [address] [place], [address], [facility] 10/14/2023 13:53:37 5 text/html c/o uti symptoms patient has uti symptoms started last night has a new sexual partner who is well endowed which could be contributing to the issue since patient has hx of vulva thinning and is post menopausal both her and her partners STI screen was negative recommended adding on estradiol on top of what she is using for the thinningpatient agrees to trial will send out urine to r/o resistant strain of bacteria [employer] [address] [place], [address], [facility] 10/01/2024 11:32:57 OBGyn Episode No OBEpisode recorded.
--- OUTSIDE RECORDS SUMMARY | 2024-10-01 14:49 | XMS_ITS ---
Author Organization [facility] Address [address] [facility] [address] [place] [address] Care Team Providers Care Rod Buster Name Role Phone GERARDOHARJIT SUE Primary Care Provider MEL Walsh [phone] REASON FOR VISIT Estring not covered Encounters Encounter Location Date Provider Diagnosis [facility] [address] [place] [address] [address] [place] [address] 05/25/2024 MEL GAUTHIER Plan Of Treatment Next Appt Details Provider Name:MEL Fall, 05/13/2025 09:00:00 AM, [address] [place] [address], [address], [place], [address], Progress Notes * MILLIEMARTHA MixJOSEEDOB:1965 (59 yo F)Acc No.[id number]:05/25/2024 Patient:?GILESOPAL BAUTISTA :1965???Age:59 Y???Sex:Female Address:[address] [place] [address], [place], [address] * true * Date:? Generated for Printi ng/Faamberg/eTransmitting on:?10/01/2024 02:49 PM EDT
--- OUTSIDE RECORDS SUMMARY | 2024-10-01 14:49 | XMS_ITS | Continuity of Care Document ---
Author Organization [facility], [facility] Address [address] [facility] [place] [address] Assessment No assessment recorded. Plan of Treatment Reminders Order Date Submit Date Provider Last Modified By Organization Details Last Modified Time Details Appointments SDV 2024 11:00A M [employer] Not available Not available Not available ANNUAL EXAM 2024 01:30P M [employer] Not available Not available Not available Lab urinalysi s complete, reflex culture 2024 025 [facility], [address] [place] [address], [address], 10/01/2024 11:32:27 urinalysi s, dipstick 2024 025 rtba [facility], [address] [facility], [address], [place], [address], 10/01/2024 11:28:35 Referral None recorded. Procedures None recorded. Surgeries None recorded. Imaging None recorded. Medication Orders estradiol 0.01% (0.1 mg/gram) vaginal cream 2024 025 [facility][id number], [address] [place], [address], 10/01/2024 11:25:29 Bactrim DS 800 mg-160 mg tablet 2024 025 [facility][id number], [address] [place], [address], 10/01/2024 11:26:36 Patient TargetsNo targets recorded. Patient InstructionsNo instructions recorded. Reason for Referral None Reported. Results Created Date Observation Date Name Description Value Unit Range Abnormal Flag Note LastModifiedBy Organization Detail LastModifiedTime 10/02/1910/01/2024 urina lysis , dipst ick Leukocytes Modera te Not Available [facility] Internal [address], [place], [address], 10/01/2024 11:27:08 10/02/19 25 10/01/2024 urina lysis , dipst ick Nitrite negati ve Not Available [address], [place], [address], 10/01/2024 11:27:08 10/02/19 25 10/01/2024 urina lysis , dipst ick Urobilinogen .2 Not Available [address], [place], [address], 10/01/2024 11:27:08 10/02/19 25 10/01/2024 urina lysis , dipst ick Protein Negati ve Not Available [address], [place], [address], 10/01/2024 11:27:08 10/02/19 25 10/01/2024 urina lysis , dipst ick pH 6.5 Not Available [address], [place], [address], 10/01/2024 11:27:08 10/02/19 25 10/01/2024 urina lysis , dipst ick Blood Modera te Not Available [address], [place], [address], 10/01/2024 11:27:08 10/02/19 25 10/01/2024 urina lysis , dipst ick Specific [place] 1.005 Not Available [facility] [address] [facility] [address], [place], [address], 10/01/2024 11:27:08 10/02/19 25 10/01/2024 urina lysis , dipst ick Ketone Negati ve Not Available [facility] [address] [facility] [address], [place], [address], 10/01/2024 11:27:08 10/02/19 25 10/01/2024 urina lysis , dipst ick Bilirubin Negati ve Not Available [facility] [address] [facility] [address], [place], [address], 10/01/2024 11:27:08 10/02/19 25 10/01/2024 urina lysis , dipst ick Glucose Negati ve Not Available [facility] Internal [facility] [address] [facility] [address], [place], [address], 10/01/2024 11:27:08 10/02/19 25 10/01/2024 urina lysis , dipst ick Appearance Clear Not Available [facility] Internal [facility] [address] [facility] [address], [place], [address], 10/01/2024 11:27:08 10/02/19 25 10/01/2024 urina lysis , dipst ick Color Pale Yellow Not Available [facility] [address] [facility] [address], [place], [address], 10/01/2024 11:27:08 Result Notes None recorded. Problems Name Problem SNOMED Code Status Onset Date Resolution Date Notes Provider Name and Address Organization Details Recorded Time Hypothyroi dism 66084543 Active 2018 Not Available [facility] 0 18:22:19 Increased blood pressure 16767087 Active 2018 Not Available [facility] 0 18:22:19 Hearing loss 48094270 Active 2022 [employer] [address] [place] [address], [address], [facility] 3 13:40:03 Central sleep apnea syndrome 88765784 Active 2022 [employer] [address] [place] [address], [address], [facility] 3 13:43:13 Syncopal vertigo 523851622 Active 2022 [employer] [address] [place] [address], [address], [facility] 3 16:17:22 Syncope and collapse 465025690 Active 2022 [employer] [address] [place] [address], [address], [facility] 3 16:20:03 Transient global amnesia 088229721 Active 2022 [employer] [address] [place] [address], [address], [facility] 3 15:44:44 Conjunctiv itis 9984297 Active 2022 [employer] [address] [place] [address], [address], [facility] 3 09:51:44 Interventr icular cardiac septal hypertroph y 406511373 Active 2023 [employer] [address] [place] [address], [address], [facility] 4 13:41:30 Atrophic vaginitis 87636163 Active 2024 [employer] [address] [place] [address], [address], [facility] 5 11:24:01 Acute urinary tract infection 631929894 Active 2024 [employer] [address] [place] [address], [address], [facility] Medicine 11:25:34 Problem Notes None recorded. Medical Equipment None Reported. [...] Updated DateTime 5 166.37 cm 27.4 kg/m2 20194.9 3 g 70 /min 98 % 98 % 126 mm[Hg] 68 mm[Hg] [facility] 5 11:12:21 Social History Question Answer Notes LastModified by Organizat ion Details LastModified Time Tobacco Smoking Status Never Smoker Not Available [facility] 05/02/2020 03:36:23 What Was The Date Of Your Most Recent Tobacco Screening? 10/01/2024 [email or web address] Information not available 10/01/2024 Do You Or Have You Ever Used Any Other Forms Of Tobacco Or Nicotine? No [email or web address] Information not available 04/29/2023 Sex: Female Functional Status None recorded. Mental Status None recorded. Family History Nothing Reported. Medical History Condition Response Coronary Artery Disease N Gout N Other N Kidney Stones N Blood Diseases N Blood Transfusion N Breast Cancer N COPD N Depression N Lung Disease N Defects or Inherited Disease N Anxiety Disorder N Muscle, Joint, or Bone Problems N Obesity N Vision or Eye Problems N Arthritis N Polyps N Infertility N Mental Disorder N Cancer N Varicosities N Stroke N Endometriosis N Bladder or Kidney Problems N High Cholesterol N Liver Disease N Headaches N Fibromyalgia N Kidney Disease N Allergies/Hayfever N Heart [...] zoster, unspecified formulation 0 completed Not Available [facility] 07/22/2022 10:26:10 zoster, unspecified formulation 0 completed Not Available [facility] 07/22/2022 10:26:10 Past Encounters Encounter ID Performer Location Encounter Start Date Encounter Closed Date Diagnosis/Indication Diagnosis SNOMED-CT Code Diagnosis ICD10 Code Diagnosis Note [id number] [employer] [facility] [address] [facility],[place] [address] 10/01/2024 10:50:32 10/01/2024 12:14:35 Atrophic vaginitis 38713877 N95.2 will start on cream Acute urin sabas tract infection 958770413 N39.0 will start on bactrim Health Concerns Section Related Observation LastModified by Organization Detai ls LastModified Time None Recorded Concern Status LastModified by Organization Details LastModified Time None Recorded Payers Encounter Date Sequence Insurance Name Policy Number Policy Tapia Covered Member ID Tapia Member ID Guarantor Name 10/01/2024 1 [facility] [id number] 01 Nichelle Shin [id number] Nichelle Shin Notes Date Note Type Note Provider Name a nd Address Organization Details Recorded Time 5 text/html c/o uti symptoms patient has [...] r/o resistant strain of bacteria [employer] [address] [place] [address], [place], [address], [facility] 10/01/2024 11:32:57 OBGyn Episode No OBEpisode recorded.
== END 2024-10-01 12:59 | disposition home or self-care (01) ==
LOC: HO.MANLNP 12:58
PROVIDERS: Visit Provider Physician Assistant
DX: N39.0 Urinary tract infection, site not specified (principal)
CPT/HCPCS: 81001; 87086; 87088; 87186